=== PATIENT | female | born 1995 | race Asian ===

== ENCOUNTER 2024-10-17 22:51 | Emergency (ER) | payer SELFPAY ==
[~2024-10-17] VITALS: Ht 162.6 cm; Wt 65.0 kg
[2024-10-17 22:53] VITALS: O2SAT 96
[2024-10-17 23:48] VITALS: TEMP 37.2
[2024-10-18 01:17] VITALS: BP 98/59; PULSE 82; RESP 20; O2SAT 100
== END 2024-10-18 01:22 | disposition home or self-care (01) ==
LOC: ER 22:51
DX: T51.0X1A Toxic effect of ethanol, accidental (unintentional), initial encounter (principal); I49.9 Cardiac arrhythmia, unspecified; Y92.9 Unspecified place or not applicable
CPT/HCPCS: 93005; 99283